=== PATIENT | female | born 1970 | race Hispanic/Latino ===

== ENCOUNTER → 2019-08-10 | Outpatient (CLI) | payer MEDICARE ==
--- NOTE | 2019-08-10 11:25 | Diagnostic Imaging Report ---
EXAM: US THYROID DATE: 08/10/2019 10:48 AM INDICATION: Hypothyroidism COMPARISON: None FINDINGS: The right thyroid lobe measures 1.7 x 0.7 x 0.8 cm. The Isthmus measures 2 mm in thickness. The left thyroid lobe measures 1.9 x 0.7 x 0.8 cm. The thyroid parenchyma is homogeneous. No focal thyroid nodules identified. Thyroid vascularity is within normal limits. IMPRESSION: Unremarkable thyroid ultrasound examination. Signed by: Dr. Aiden Dumont MD on 08/10/2019 11:22 AM
== END ==
LOC: US 10:16
PROVIDERS: ATTEND Family Medicine
DX: E03.9 Hypothyroidism, unspecified (principal)
CPT/HCPCS: 76536